=== PATIENT | female | born 1930 | race Caucasian/White ===

== ENCOUNTER → 2016-07-20 | Outpatient (CLI) | payer MEDICARE, BC ==
[~2016-07-20] MED LIST: AMLO5TAB2 PO; ASPI-496 PO; CLOP75TA PO; EZET10TA3 PO; GABA600T2 PO; LISI-167 PO; NITR50CA11 PO; PHOS250T3 PO; POLY17PO5 PO; TRAM-28 PO; TRAM50TA2 PO
== END | disposition home or self-care (01) ==
LOC: CFH 11:45
PROVIDERS: ATTEND Nurse Practitioner Primary Care
DX: S62.637A Displaced fracture of distal phalanx of left little finger, initial encounter for closed fracture (principal); M25.552 Pain in left hip; M25.512 Pain in left shoulder; M25.561 Pain in right knee; I69.30 Unspecified sequelae of cerebral infarction; K59.00 Constipation, unspecified; N39.0 Urinary tract infection, site not specified; E78.2 Mixed hyperlipidemia; E55.9 Vitamin D deficiency, unspecified; X58.XXXA Exposure to other specified factors, initial encounter; Y93.89 Activity, other specified; Y92.89 Other specified places as the place of occurrence of the external cause; Y99.8 Other external cause status

== ENCOUNTER → 2017-06-26 | Outpatient (CLI) | payer MEDICARE, BC ==
[~2017-06-26] MED LIST changes: +EZET10TA18 PO; -EZET10TA3 PO; -TRAM-28 PO; +TRAM-47 PO
== END ==
LOC: CFH 10:57
PROVIDERS: ATTEND Nurse Practitioner Primary Care
DX: E04.1 Nontoxic single thyroid nodule (principal); E03.9 Hypothyroidism, unspecified; R53.83 Other fatigue; E55.9 Vitamin D deficiency, unspecified; E78.2 Mixed hyperlipidemia; N39.0 Urinary tract infection, site not specified; E88.81 Metabolic syndrome and other insulin resistance; R01.1 Cardiac murmur, unspecified; I10 Essential (primary) hypertension; R79.9 Abnormal finding of blood chemistry, unspecified; Z79.899 Other long term (current) drug therapy
CPT/HCPCS: 76536

== ENCOUNTER → 2017-10-17 | Outpatient (CLI) | payer MEDICARE, BC | END | disposition home or self-care (01) | LOC: CFH 12:06 | PROVIDERS: ATTEND Nurse Practitioner Primary Care | DX: J98.11 Atelectasis (principal); S22.43XA Multiple fractures of ribs, bilateral, initial encounter for closed fracture; X58.XXXA Exposure to other specified factors, initial encounter; Y93.89 Activity, other specified; Y92.89 Other specified places as the place of occurrence of the external cause; Y99.8 Other external cause status | CPT/HCPCS: 71046 ==

== ENCOUNTER → 2018-04-17 | Outpatient (CLI) | payer MEDICARE, BC ==
[~2018-04-17] MED LIST changes: +AMLO-150 PO; -AMLO5TAB2 PO
[2018-04-17 16:04] LABS: MICROSCOPIC NOT IND
[2018-04-17 16:08] LABS: CULTURE INDICATED? NO
== END | disposition home or self-care (01) ==
LOC: CFH 15:03
PROVIDERS: ATTEND Nurse Practitioner Primary Care
DX: M41.85 Other forms of scoliosis, thoracolumbar region (principal); J98.4 Other disorders of lung
CPT/HCPCS: 71046; 81003

== ENCOUNTER 2018-05-01 05:18 | Emergency (ER) | payer MEDICARE, BC ==
[~2018-05-01] VITALS: Ht 154.9 cm; Wt 65.0 kg
[~2018-05-01 05:18] MED LIST changes: +CYCL-259 PO; -GABA600T2 PO; +GABA600T7 PO; +KETO30VI27 IVPush; +LIDO700A20 TD; +LISI40TA PO; +NITR50CA PO; +PRED10TA PO; +SIMV20TA3 PO; +SULF1TAB24 PO
[2018-05-01] MEDS ORDERED: PHENYLEPHRINE NASAL 1%, 15ML SPRAY ONE (05:22)
--- NOTE | 2018-05-01 05:24 | NUR ---
MD TO BEDSIDE FOR PT EVAL.
--- NOTE | 2018-05-01 05:30 | NUR ---
VERBAL ORDER FOR 4 SILVER NITRATE STICKS.
[2018-05-01] MEDS ORDERED: SILVER NITRATE STICK TP ONE (05:34)
--- NOTE | 2018-05-01 05:40 | NUR ---
PROVIDER COMPLETE, PT NOSE BLEED CONTROLLED.
--- NOTE | 2018-05-01 05:42 | NUR ---
SILVER NITRATE AND SPRAY ADMIN BY
[2018-05-01 06:01] VITALS: BP 116/59
== END 2018-05-01 06:04 | disposition home or self-care (01) ==
LOC: ED 05:44
DX: R04.0 Epistaxis (principal)
CPT/HCPCS: 30901; 99284

== ENCOUNTER → 2018-05-20 | Outpatient (CLI) | payer MEDICARE, BC ==
[2018-05-20 12:37] LABS: BASOPHILS # (AUTO) 0.03 x10^3/uL (0-0.1); BASOPHILS % (AUTO) 0 % (0-1); EOSINOPHILS # (AUTO) 0.03 x10^3/uL (0-0.4); EOSINOPHILS % (AUTO) 0 % (1-7); LYMPHOCYTES % (AUTO) 17 % (22-44); MD NO; MEAN CORPUSCULAR HEMOGLOBIN 30.2 pg (27.0-34.8); MEAN CORPUSCULAR HGB CONC 32.6 g/dL (32.4-35.8); MEAN CORPUSCULAR VOLUME 92.7 fL (80-100); MEAN PLATELET VOLUME 7.7 fL (7.4-10.4); MONOCYTES # (AUTO) 0.51 x10^3/uL (0.2-0.8); MONOCYTES % (AUTO) 6 % (2-9); NEUTROPHILS # (AUTO) 6.24 x10^3/uL (1.8-6.8); NEUTROPHILS % (AUTO) 76 % (42-75); PLATELET COUNT 454 x10^3/uL (130-400); RED BLOOD COUNT 4.38 x10^6/uL (3.82-5.3)
[2018-05-20 12:45] LABS: CULTURE INDICATED? YES; MICROSCOPIC INDICATED
[2018-05-20 12:49] LABS: ANION GAP 4 mmol/L (5-15); CALCIUM 9.6 mg/dL (8.5-10.1); CHLORIDE 104 mmol/L (98-107)
[2018-05-20 13:16] LABS: ALANINE AMINOTRANSFERASE 25 U/L (12-78); ALKALINE PHOSPHATASE 72 U/L (45-117); BILIRUBIN,TOTAL 0.7 mg/dL (0.2-1.0); CREATININE 0.78 mg/dL (0.55-1.02); T4 (THYROXINE) 10.2 mcg/dL (4.8-13.9); TOTAL PROTEIN 7.8 g/dL (6.4-8.2)
[2018-05-20 13:22] LABS: HEMOGLOBIN A1C 5.7 % (4.2-6.3)
== END | disposition home or self-care (01) ==
LOC: CFH 11:38
PROVIDERS: ATTEND Nurse Practitioner Primary Care
DX: E03.9 Hypothyroidism, unspecified (principal); N39.0 Urinary tract infection, site not specified; E78.2 Mixed hyperlipidemia; I10 Essential (primary) hypertension; R53.83 Other fatigue; E55.9 Vitamin D deficiency, unspecified; E88.81 Metabolic syndrome and other insulin resistance; R01.1 Cardiac murmur, unspecified; R79.9 Abnormal finding of blood chemistry, unspecified; R11.0 Nausea; Z79.899 Other long term (current) drug therapy
CPT/HCPCS: 36415; 80053; 81001; 82306; 82607; 83036; 84207; 84425; 84436; 84443; 84481; 85025; 87077; 87086

== ENCOUNTER → 2018-06-03 | Outpatient (CLI) | payer MEDICARE, BC ==
[2018-06-03 12:36] LABS: MICROSCOPIC NOT IND
[2018-06-03 12:40] LABS: CULTURE INDICATED? NO
[2018-06-03 12:46] LABS: CHOL/HDL RATIO 2.5; LDL/HDL RATIO 1.2 (0.5-3.0)
== END | disposition home or self-care (01) ==
LOC: CFH 08:23
PROVIDERS: ATTEND Nurse Practitioner Primary Care
DX: R53.83 Other fatigue (principal); R78.2 Finding of cocaine in blood; E03.9 Hypothyroidism, unspecified; N39.0 Urinary tract infection, site not specified; E88.81 Metabolic syndrome and other insulin resistance; R01.1 Cardiac murmur, unspecified; I10 Essential (primary) hypertension; R79.9 Abnormal finding of blood chemistry, unspecified; I99.8 Other disorder of circulatory system; Z79.899 Other long term (current) drug therapy
CPT/HCPCS: 36415; 80061; 81003; 82150; 83690

== ENCOUNTER 2018-10-23 17:03 | Outpatient (CLI) | payer BC, MEDICARE | END 2018-10-23 23:59 | disposition home or self-care (01) | LOC: LAB 17:03 | PROVIDERS: ATTEND Nurse Practitioner Primary Care | DX: R53.83 Other fatigue (principal); I10 Essential (primary) hypertension; E55.9 Vitamin D deficiency, unspecified; E78.2 Mixed hyperlipidemia; E03.9 Hypothyroidism, unspecified; N39.0 Urinary tract infection, site not specified; E88.81 Metabolic syndrome and other insulin resistance; I99.8 Other disorder of circulatory system; R01.1 Cardiac murmur, unspecified; R79.9 Abnormal finding of blood chemistry, unspecified; Z79.899 Other long term (current) drug therapy | CPT/HCPCS: 36415; 86480 ==